=== PATIENT | female | born 1960 | race Caucasian/White ===

== ENCOUNTER 2017-12-27 23:09 | Emergency (ER) | payer OTHER ==
[2017-12-27 23:33] VITALS: BP 142/91; PULSE 96; TEMP 97.9; BMI 26.4
[2017-12-28] MEDS ORDERED: SODIUM CHLORIDE 500 ML IV STA (00:05)
--- NOTE | 2017-12-28 00:12 | PDOC ---
History of Present Illness - General Chief Complaint: Lightheaded Stated Complaint: FATIGUE Time Seen by Provider: 12/27/17 23:39 History Source: Patient - History of Present Illness Initial Comments: 12/28/17 02:06 57 year old female with history of hypertension, hypothyroidism c/p epigastric pain since 10pm. + nausea and dizziness. denies vomiting, diarrhea, chest pain , diaphoresis, fever/ chills, cough. 12/28/17 02:19 Past History - Past Medical History Allergies/Adverse Reactions: Allergies Allergy/AdvReac Type Severity Reaction Status Date / Time amlodipine besylate AdvReac Intermediate Rash Verified 12/27/17 23:29 [From [facility]] Home Medications: Ambulatory Orders Famotidine [Pepcid] 40 mg PO DAILY #20 tablet 12/28/17 Levothyroxine [Synthroid -] 25 mcg PO DAILY 12/28/17 Metoprolol Succinate [Toprol Xl] 25 mg PO DAILY 12/28/17 Anemia: No Asthma: No Cancer: No Cardiac Disorders: No CVA: No COPD: No CHF: No Dementia: No Diabetes: No GI Disorders: No Disorders: No HTN: Yes Hypercholesterolemia: No Liver Disease: No Seizures: No Thyroid Disease: Yes (HYPOTHYROIDISM) - Surgical History Abdominal Surgery: No Appendectomy: No Cardiac Surgery: No Cholecystectomy: No Lung Surgery: No Neurologic Surgery: No Orthopedic Surgery: No - Suicide/Smoking/Psychosocial Hx Smoking History: Never smoked Have you smoked in the past 12 months: No Hx Alcohol Use: Yes (SOCIALLY) Drug/Substance Use Hx: No Substance Use Type: Alcohol Hx Substance Use Treatment: No *Physical Exam - Vital Signs Last Vital Signs Temp Pulse Resp BP Pulse Ox 97.9 F 96 H 20 142/91 99 12/27/17 23:29 12/27/17 23:29 12/27/17 23:29 12/27/17 23:29 12/27/17 23:29 - Physical Exam General Appearance: Yes: Appropriately Dressed, Mild Distress Respiratory/Chest: positive: Lungs Clear, Normal Breath Sounds Cardiovascular: positive: Regular Rhythm, Regular Rate Gastrointestinal/Abdominal: positive: Normal Bowel Sounds, Tender (epigastric), Soft Musculoskeletal: positive: Normal Inspection. negative: CVA Tenderness Extremity: positive: Normal Capillary Refill, Normal Inspection, Normal Range of Motion ED Treatment Course - LABORATORY CBC & Chemistry Diagram: 12/28/17 01:00 12/28/17 01:00 Medical Decision Making - Medical Decision Making gastritis P: pepcid zofran IVF. ABDomina l US: no acute findings 12/28/17 02:20 Patient reports feeling better. s/p famotidine and zofran. currently completing IVF. chemistry pending. will reevaluate. 12/28/17 02:44 12/28/17 03:36 patient now feels better. will d/c homw *DC/Admit/Observation/Transfer Diagnosis at time of Disposition: Gastritis Qualifiers: Gastritis type: other gastritis Chronicity: acute Gastritis bleeding: without bleeding Qualified Code(s): K29.00 - Acute gastritis without bleeding - Discharge Dispostion Disposition: HOME - Prescriptions Prescriptions: Famotidine [Pepcid] 40 mg PO DAILY #20 tablet - Referrals Referrals: Raji Perry [Primary Care Provider] - Daren Villanueva MD [Staff Physician] - Call tomorrow - Patient Instructions Printed Discharge Instructions: Gastritis (Alternative Therapy) Additional Instructions: start a bland diet. take pepcid as prescribed. dollow up with your doctor as soon as possible. return to the ED if symptoms worsen. - Post Discharge Activity Forms/Work/School Notes: Back to Work
[2017-12-28] MEDS ORDERED: ONDANSETRON 4 MG/2 ML VIAL IVPUSH ONE (00:13)
[2017-12-28] MEDS ORDERED: FAMOTIDINE IV 20 MG/12 ML VIAL IVPUSH ONE (00:18)
[2017-12-28] MEDS ORDERED: ONDANSETRON 4 MG/2 ML VIAL ONE (00:21)
[2017-12-28] MEDS ORDERED: FAMOTIDINE 20 MG/50 ML IVPB 20 MG/50 ML MG IVPB ONE (00:21)
[2017-12-28 01:17] LABS: BASO % 0.5 % (0-2.0); EOS % 0.7 % (0-4.5); HEMATOCRIT 39.4 % (32.4-45.2); HEMOGLOBIN 13.3 GM/dL (10.7-15.3); LYMPH % 22.1 % (8-40); MCHC 33.8 g/dl (32.0-36.0); MEAN CELL VOLUME 85.7 fl (80-96); MEAN PLT VOLUME 8.6 fl (7.5-11.1); MONO % 8.3 % (3.8-10.2); NEUT % 68.4 % (42.8-82.8); PLATELET COUNT 193 K/MM3 (134-434); RDW 13.7 % (11.6-15.6); WHITE BLOOD COUNT 6.9 K/mm3 (4.0-10.0)
[2017-12-28 01:34] LABS: INR 0.96 (0.82-1.09); PROTHROMBIN TIME (PATIENT) 10.8 SEC (9.98-11.88)
[2017-12-28 02:07] LABS: ALBUMIN 3.9 g/dl (3.4-5.0); ANION GAP 9 (8-16); BILIRUBIN,TOTAL 0.2 mg/dL (0.2-1.0); BLOOD UREA NITROGEN 20 mg/dL (7-18); CALCIUM 9.1 mg/dL (8.5-10.1); CHLORIDE 103 mmol/L (98-107); CO2 26 mmol/L (21-32); CREATININE 0.7 mg/dL (0.55-1.02); GLUCOSE,RANDOM 111 mg/dL (74-106); SGOT/AST 17 U/L (15-37); SGPT/ALT 21 U/L (12-78); SODIUM 138 mmol/L (136-145); TOT PROT 7.6 g/dl (6.4-8.2)
[2017-12-28 02:09] LABS: ALK PHOS 77 U/L (45-117)
--- NOTE | 2017-12-28 08:04 | EKG ---
Test Reason : Blood Pressure : / mmHG Vent. Rate : 082 BPM Atrial Rate : 082 BPM P-R Int : 158 ms QRS Dur : 072 ms QT Int : 380 ms P-R-T Axes : 052 007 033 degrees QTc Int : 443 ms NORMAL SINUS RHYTHM NORMAL ECG WHEN COMPARED WITH ECG OF 20-JAN-2015 17:45, NO SIGNIFICANT CHANGE WAS FOUND Confirmed by GIRMA OLSEN MD ([id number]) on 12/28/2017 8:04:19 AM Referred By: Confirmed By:GIRMA OLSEN MD
== END 2017-12-28 03:53 | disposition home or self-care (01) ==
LOC: JER 23:09
PROC: 3E0337Z Introduction of Electrolytic and Water Balance Substance into Peripheral Vein, Percutaneous Approach (ICD-10-PCS; principal; 2017-12-27)
PROC: 3E033GC Introduction of Other Therapeutic Substance into Peripheral Vein, Percutaneous Approach (ICD-10-PCS; 2017-12-27)
PROC: 3E033GC Introduction of Other Therapeutic Substance into Peripheral Vein, Percutaneous Approach (ICD-10-PCS; 2017-12-27)
DX: K29.00 Acute gastritis without bleeding (principal); I10 Essential (primary) hypertension; E03.9 Hypothyroidism, unspecified
CPT/HCPCS: 36415; 71046-TC; 76705-TC; 80053; 82550; 83690; 83735; 84484; 85025; 85610; 93005; 93010; 99282-25